=== PATIENT | male | born 1955 | race Caucasian/White ===

== ENCOUNTER 2021-06-30 10:28 | Observation (INO) ==
[2021-06-30] MEDS ORDERED: Ipratropium/Albuterol Neb 3 ML IH ONE (10:38)
[2021-06-30] MEDS: Ipratropium/Albuterol Neb 3 ML IH ONE ×2 (10:55→11:07)
[2021-06-30 11:00] LABS: Basophils # 0.1 K/mcL (0.0-0.2); Basophils % 0.4 %; Eosinophils # 0.1 K/mcL (0.0-0.6); Eosinophils % 0.4 %; Hematocrit 52.9 % (37.5-50.1); Immature Granulocytes % 0.9 % (0-4); Lymphocytes # 1.7 K/mcL (0.6-4.6); Lymphocytes % 10.8 %; Mean Corpuscular HGB Conc 32.1 g/dL (31.6-35.5); Mean Corpuscular Hemoglobin 27.9 pg (28.0-33.3); Mean Corpuscular Volume 86.9 fL (83.0-100.0); Mean Platelet Volume 10.6 fL (9.4-12.4); Monocytes # 1.5 K/mcL (0.0-1.3); Monocytes % 9.6 %; Neutrophils # 12.2 K/mcL (1.6-8.9); Platelet Count 226 K/mcL (140-400); Red Blood Count 6.09 M/mcL (4.19-5.50); Red Cell Distribution Width 15.5 % (11.5-14.5); Segmented Neutrophils % 77.9 %; White Blood Count 15.7 K/mcL (4.3-11.1)
[2021-06-30 11:08] LABS: INR 1.4; Prothrombin Time 16.1 Seconds (9.4-12.1)
[2021-06-30 11:10] LABS: Activated Partial Thrombo Time 46.4 Seconds (26.0-36.0)
[2021-06-30 11:16] LABS: Alanine Aminotransferase 27 Units/L (7-52); Albumin/Globulin Ratio 1.1 (1.1-2.2); Alkaline Phosphatase 94 Units/L (34-104); Aspartate Amino Transferase 19 Units/L (13-39); BUN/Creatinine Ratio 28 (6-26); Bilirubin,Total 0.5 mg/dL (0.3-1.0); Blood Urea Nitrogen 43 mg/dL (8-23); Calcium 9.5 mg/dL (8.6-10.3); Carbon Dioxide 22 mEq/L (23-29); Chloride 95 mEq/L (98-107); Globulin 3.5 g/dL (2.4-3.5); Glucose 109 mg/dL (70-105); Magnesium 2.1 mg/dL (1.6-2.6); Osmolality,Calculated 277 (280-300); Phosphorous 4.1 mg/dL (2.7-4.5); Potassium 4.7 mEq/L (3.5-5.1); Sodium 128 mEq/L (136-145); Total Protein 7.5 g/dL (6.4-8.9); eGFR For African Americans 54 (> 60); eGFR For Non-African Americans 45 (> 60)
[2021-06-30] MEDS ORDERED: Isovue-370 500 ML BOTTLE IVP ONE (11:26)
[2021-06-30] MEDS ORDERED: 0.9 % Sodium Chloride 1,000 ML IV ONE (11:45)
[2021-06-30] MEDS ORDERED: Naloxone 0.4 MG/ML INJ IVP PRN (13:11)
[2021-06-30] MEDS ORDERED: Ondansetron 4 MG/2 ML VIAL IVP PRN (13:11)
[2021-06-30] MEDS ORDERED: Acetaminophen 325 MG TABLET PO PRN (13:11)
[2021-06-30] MEDS ORDERED: cefTRIAXone 1,000 MG in 0.9 % Sodium Chloride Mini Bag 100 ML IVPB ONE (13:14)
[2021-06-30] MEDS ORDERED: Azithromycin 500 MG in 0.9 % Sodium Chloride 250 ML IVPB ONE (13:14)
[2021-06-30] MEDS ORDERED: *HR* LORazepam 2 MG/ML VIAL IVP PRN ×2 (14:25)
[2021-06-30] MEDS: Budesonide/Formoterol 160/4.5 1 PUFF INH IH SCH ×2 (14:45→19:26)
[2021-06-30] MEDS: *HR* HYDROcodone/Acet 5/325 mg TABLET PO SCH ×3 (15:52→23:39)
[2021-06-30] MEDS: Ipratropium/Albuterol Neb 3 ML IH SCH ×3 (16:26→23:19)
[2021-06-30] MEDS: Nicotine 21 MG PATCH.TD24 TD SCH (17:13)
[2021-06-30] MEDS: MethylPREDNISolone 40 MG/ML VIAL IVP SCH ×2 (17:16→23:39)
[2021-06-30 17:17] LABS: Adenovirus Not Detected (Not Detect); Bordetella Pertussis Not Detected (Not Detect); Chlamydophila pneumoniae Not Detected (Not Detect); Coronavirus 229E Not Detected (Not Detect); Coronavirus HKU1 Not Detected (Not Detect); Coronavirus NL63 Not Detected (Not Detect); Coronavirus OC43 Not Detected (Not Detect); Human Metapneumovirus Not Detected (Not Detect); Human Rhinovirus/Enterovirus Not Detected (Not Detect); Influenza A Subtype 2009 H1 Not Detected (Not Detect); Influenza B Not Detected (Not Detect); Mycoplasma pneumoniae Not Detected (Not Detect); Parainfluenza Virus 1 Not Detected (Not Detect); Parainfluenza Virus 2 Not Detected (Not Detect); Parainfluenza Virus 3 Not Detected (Not Detect); Parainfluenza Virus 4 DETECTED (Not Detect); Respiratory Syncytial Virus Not Detected (Not Detect); SARS-CoV-2 Not Detected (Not Detect)
[2021-06-30 17:34] LABS: Troponin I < 0.03 ng/mL (< 0.04)
[2021-07-01] MEDS: Ipratropium/Albuterol Neb 3 ML IH SCH ×3 (03:01→11:17)
[2021-07-01 06:02] LABS: Hematocrit 50.4 % (37.5-50.1); Mean Corpuscular HGB Conc 31.7 g/dL (31.6-35.5); Mean Corpuscular Hemoglobin 27.5 pg (28.0-33.3); Mean Corpuscular Volume 86.6 fL (83.0-100.0); Mean Platelet Volume 10.1 fL (9.4-12.4); Platelet Count 227 K/mcL (140-400); Red Blood Count 5.82 M/mcL (4.19-5.50); Red Cell Distribution Width 14.9 % (11.5-14.5); White Blood Count 14.1 K/mcL (4.3-11.1)
[2021-07-01] MEDS: MethylPREDNISolone 40 MG/ML VIAL IVP SCH ×2 (06:12→10:34)
[2021-07-01] MEDS: *HR* HYDROcodone/Acet 5/325 mg TABLET PO SCH ×2 (06:15→14:20)
[2021-07-01 06:28] LABS: BUN/Creatinine Ratio 36 (6-26); Blood Urea Nitrogen 38 mg/dL (8-23); Calcium 8.9 mg/dL (8.6-10.3); Carbon Dioxide 24 mEq/L (23-29); Chloride 103 mEq/L (98-107); Glucose 179 mg/dL (70-105); Osmolality,Calculated 292 (280-300); Potassium 4.4 mEq/L (3.5-5.1); Sodium 134 mEq/L (136-145); eGFR For African Americans > 60 (> 60); eGFR For Non-African Americans > 60 (> 60)
[2021-07-01 07:53] VITALS: TEMP 97.7
[2021-07-01] MEDS: Budesonide/Formoterol 160/4.5 1 PUFF INH IH SCH (08:07)
[2021-07-01] MEDS: Nicotine 21 MG PATCH.TD24 TD SCH (08:37)
[2021-07-01] MEDS ORDERED: Thiamine (B-1) 100 MG TABLET PO SCH (09:00)
[2021-07-01] MEDS ORDERED: Azithromycin 250 MG TABLET PO SCH (09:00)
[2021-07-01] MEDS ORDERED: Vitamin B Complex/Vit C/Vit E 1 EACH TABLET PO SCH (09:00)
[2021-07-01] MEDS ORDERED: Folic Acid 1 MG TABLET PO SCH (09:00)
[2021-07-01 11:19] VITALS: O2SAT 91
[2021-07-01 13:46] VITALS: BP 149/65; PULSE 96; RESP 19
[2021-07-01] MEDS ORDERED: cefTRIAXone 1,000 MG in Water for inj. (sterile) 10 ML IVP SCH (15:00)
== END 2021-07-01 14:49 | disposition home or self-care (01) ==
LOC: EMEROOGRE 10:28 → INPGRE 10:28
PROVIDERS: ADMIT Family Medicine; ATTEND Family Medicine